=== PATIENT | female | born 1955 | race Caucasian/White ===

== ENCOUNTER 2017-08-31 19:50 | Emergency (ER) | payer BC ==
[2017-08-31 20:10] VITALS: BP 103/65
--- NOTE | 2017-08-31 20:15 | EDM.PDOC ---
ED HPI GENERAL MEDICAL PROBLEM - General Chief Complaint: General Stated Complaint: IN PAIN FROM A COLONASKPY PROCEDURE Time Seen by Provider: 08/31/17 20:14 Source of Information: Reports: Patient History Limitations: Reports: No Limitations - History of Present Illness INITIAL COMMENTS - FREE TEXT/NARRATIVE: Patient is 62-year-old female who presents to the ED complaining of generalized abdominal pain worse noted to the left upper quadrant. Patient recently had a EGD and colonoscopy performed earlier today at approximately 9:[address] [place] [address] Moody for left-sided upper quadrant abdominal pain. Patient was diagnosed with a hiatal hernia and also GERD. Patient was not released due to patient's blood pressure was low. Patient was discharged home at approximately 1 :00 in the afternoon. Since then the patient's been having intermittent abdominal pain that has progressively gotten worse this evening. Pain is constant generalized severe with palpation. Pain is worsened with laying flat and extends up the left side of her back into her shoulder. She has been eating and drinking with no nausea no vomiting. She's had intermittent loose stools with little flatulence. She believes some of her discomfort may be associated with residual air from the procedure that was not completely expelled. He has been urinating fine with no dysuria present. Current medications include: Celexa, levothyroxine, Citrucel, and Protonix Past history includes: chronic bronchitis, GERD, hiatal hernia, hypothyroidism, migraines, depression Surgical history includes: EGD/colonoscopy, cholecystectomy Patient smokes half pack per day, denies any alcohol use, denies any recreational drug use. Left Shoulder Pain Score (Numeric/FACES): 10 - Related Data Allergies Allergy/AdvReac Type Severity Reaction Status Date / Time Penicillins Allergy Rash Verified 03/01/16 17:45 tetracycline [Tetracycline] Allergy Nausea and Verified 03/01/16 17:45 Vomiting Home Meds: Home Meds Levothyroxine 100 mcg PO DAILY 02/05/14 [History] Acetaminophen [Tylenol] 650 mg PO ASDIRECTED PRN 08/31/17 [History] Brintellix 10 mg PO DAILY 08/31/17 [History] Methylcellulose [Citrucel] 500 mg PO DAILY 08/31/17 [History] Pantoprazole Sodium [Protonix] 40 mg PO DAILY 08/31/17 [History] Sucralfate [Carafate] 1 gram PO QID 08/31/17 [History] Past Medical History HEENT History: Reports: Impaired Vision Other HEENT History: wears eyeglasses Respiratory History: Reports: Bronchitis, Recurrent Gastrointestinal History: Reports: Cholelithiasis Genitourinary History: Reports: Other (See Below) Other Genitourinary History: blood in urine, unknown etiology. 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: Musculoskeletal History: Reports: Fracture Neurological History: Reports: Migraines Psychiatric History: Reports: Depression Endocrine/Metabolic History: Reports: Hypothyroidism - Infectious Disease History Infectious Disease History: Reports: Chicken Pox, Measles - Past Surgical History GI Surgical History: Reports: Cholecystectomy Social & Family History - Tobacco Use Smoking Status *Q: Current Every Day Smoker Years of Tobacco use: 30 Packs/Tins Daily: 0.5 Used Tobacco, but Quit: No Second Hand Smoke Exposure: No - Alcohol Use Days Per Week of Alcohol Use: 0 - Recreational Drug Use Recreational Drug Use: No Drug Use in Last 12 Months: No ED ROS GENERAL - Review of Systems Review Of Systems: ROS reveals no pertinent complaints other than HPI. ED EXAM, GENERAL - Physical Exam Exam: See Below Exam Limited By: No Limitations General Appearance: Alert, WD/WN, Moderate Distress Ears: Hearing Grossly Normal Nose: Normal Inspection Throat/Mouth: Normal Inspection, Normal Oropharynx, Normal Voice, No Airway Compromise Neck: Normal Inspection, Supple Respiratory/Chest: No Respiratory Distress, Lungs Clear, Normal Breath Sounds, No Accessory Muscle Use Cardiovascular: Normal Peripheral Pulses, Regular Rate, Rhythm Peripheral Pulses: 2+: Radial (L) GI/Abdominal: Distended, Guarding, Rebound, Tender (Throughout), Abnormal Bowel Sounds Back Exam: Normal Inspection. No: CVA Tenderness (L), CVA Tenderness (R) Extremities: Normal Inspection, Non-Tender, No Pedal Edema Neurological: Alert, Oriented, CN II-XII Intact, Normal Cognition Psychiatric: Normal Affect, Normal Mood Skin Exam: Warm, Dry, Intact, Normal Color Course - Vital Signs Last Recorded V/S: Last Vital Signs Temp 97.7 F 08/31/17 20:09 Pulse 87 08/31/17 20:09 Resp 20 08/31/17 20:09 BP 103/65 08/31/17 20:09 Pulse Ox 99 08/31/17 20:09 - Orders/Labs/Meds Orders: Active Orders 24 hr Category Date Time Status Peripheral IV Care [RC] . DIRECTED Care 08/31/17 20:38 Active PACKED CELLS [RED BLOOD CELLS LP] [BBK] Stat Lab 08/31/17 20:40 Results PATIENT RETYPE [BBK] Stat Lab 08/31/17 20:40 Results TYPE AND SCREEN [BBK] Stat Lab 08/31/17 20:40 Results Peripheral IV Insertion Adult [OM.PC] Stat Oth 08/31/17 20:38 Ordered Labs: Laboratory Tests 08/31/17 08/31/17 08/31/17 Range/Units 20:40 20:40 20:40 WBC 11.46 H (3.98-10.04) K/mm3 RBC 3.13 L (3.98-5.22) M/mm3 Hgb 9.4 L (11.2-15.7) gm/L Hct 27.9 L (34.1-44.9) % MCV 89.1 (79.4-94.8) fl MCH 30.0 (25.6-32.2) pg MCHC 33.7 (32.2-35.5) g/dl RDW Std Deviation 43.4 (36.4-46.3) fL Plt Count 307 (182-369) K/mm3 MPV 9.9 (9.4-12.3) fl Neut % (Auto) 81.1 H (34.0-71.1) % Lymph % (Auto) 12.8 L (19.3-51.7) % [place] % (Auto) 5.3 (4.7-12.5) % Eos % (Auto) 0.3 L (0.7-5.8) Baso % (Auto) 0.2 (0.1-1.2) % Neut # (Auto) 9.30 H (1.56-6.13) K/mm3 Lymph # (Auto) 1.47 (1.18-3.74) K/mm3 [place] # (Auto) 0.61 H (0.24-0.36) K/mm3 Eos # (Auto) 0.03 L (0.04-0.36) K/mm3 Baso # (Auto) 0.02 (0.01-0.08) K/mm3 Sodium 138 (136-145) mEq/L Potassium 3.5 (3.5-5.1) mEq/L Chloride 104 (98-107) mEq/L Carbon Dioxide 25 (21-32) mEq/L Anion Gap 12.5 (5-15) BUN 9 (7-18) mg/dL Creatinine 0.7 (0.55-1.02) mg/dL Est Cr Clr Drug Dosing 64.21 mL/min Estimated GFR (MDRD) > 60 (>60) mL/min BUN/Creatinine Ratio 12.9 L (14-18) Glucose 121 H (80-115) mg/dL Calcium 8.5 (8.5-10.1) mg/dL Total Bilirubin 0.4 (0.2-1.0) mg/dL AST 16 (15-37) U/L ALT 17 (14-59) U/L Alkaline Phosphatase 78 (46-116) U/L C-Reactive Protein < 0.2 (<1.0) mg/dL Total Protein 5.4 L (6.4-8.2) g/dl Albumin 3.0 L (3.4-5.0) g/dl Globulin 2.4 gm/dL Albumin/Globulin Ratio 1.3 (1-2) Blood Type AB NEGATIVE Gel Antibody Screen Negative Crossmatch See Detail Meds: Medications Discontinued Medications Generic Name Dose Route Start Last Admin Trade Name Chavoq PRN Reason Stop Dose Admin Diatrizoate Meglum/Diatrizoate Sod 90 ml 08/31/17 22:48 08/31/17 23:46 Gastrografin 37% PO 08/31/17 22:49 90 ml ONETIME ONE Administration Hydromorphone HCl 0.25 mg 08/31/17 20:39 08/31/17 20:54 Dilaudid IVPUSH 08/31/17 20:40 0.25 mg ONETIME ONE Administration Hydromorphone HCl 0.25 mg 08/31/17 22:15 08/31/17 22:21 Dilaudid IVPUSH 08/31/17 22:16 0.25 mg ONETIME ONE Administration Hydromorphone HCl 0.25 mg 08/31/17 23:08 08/31/17 23:14 Dilaudid IVPUSH 08/31/17 23:09 0.25 mg ONETIME ONE Administration Sodium Chloride 1,000 mls @ 250 mls/hr 08/31/17 20:45 09/01/17 00:24 Normal Saline IV 100 mls/hr ASDIRECTED TYLER Infusion Iopamidol 120 ml 08/31/17 22:48 08/31/17 23:47 Isovue-300 (61%) IVPUSH 08/31/17 22:49 120 ml ONETIME ONE Administration Ondansetron HCl 4 mg 08/31/17 20:39 08/31/17 20:54 Zofran IVPUSH 08/31/17 20:40 4 mg ONETIME ONE Administration Ondansetron HCl 4 mg 08/31/17 23:21 08/31/17 23:21 Zofran IVPUSH 08/31/17 23:22 4 mg ONETIME ONE Administration Ondansetron HCl Confirm 08/31/17 23:26 08/31/17 23:42 Zofran Administered 08/31/17 23:27 Not Given Dose 4 mg .ROUTE .STK-MED ONE Ondansetron HCl 4 mg 08/31/17 23:40 08/31/17 23:42 Zofran IVPUSH 08/31/17 23:41 Not Given ONETIME ONE Sodium Chloride 10 ml 08/31/17 20:38 08/31/17 23:46 Saline Flush FLUSH 10 ml ASDIRECTED PRN Administration Keep Vein Open - Re-Assessments/Exams Free Text/Narrative Re-Assessment/Exam: IV established with normal saline 250 mL per hour, Zofran 4 mg IVP, Dilaudid 0.25 mg IVP. Initial labs will include CBC, chem 14, CRP. Will obtain 2 view of the abdomen flat and upright to evaluate for air in stool pattern. 08/31/17 21:23 Labs reviewed: Chemistry panel was essentially normal. White blood cell count mildly elevated 11.46, hemoglobin was 9.4, neutrophil percent is 81.1, neutrophil number is 9.30. CRP less than 0.2. Patient has had dark stools positive for blood prompting colonoscopy. She reports HGB was high this Jul 2017. She has no active bleeding from her rectum. Hgb is low today 9.4. No biopsy's obtained or bleeding within the colon today. X-ray of the abdomen does not show any free air along the diaphragm. Multiple areas with increased air within the colon with no signs of obstruction at this point. Reviewed with Dr. Rand. 2134 Reassessment, shared results of labs and x-ray of the abdomen with the patient. She is still quite tender to touch left upper quadrant. Unable to sit up without experiencing significant amount of pain. Will go ahead and obtain a CT the abdomen and pelvis with oral and IV contrast. 08/31/17 22:15 patient is having worsening pain to her abdomen after drinking the contrast. Ordered Dilaudid 0.25 mg IVP. 08/31/17 23:21 patient came nauseated while in the radiology department. Ordered Zofran 4 mg IVP. 2[address] interpretation of the CT reveals blood around the liver and spleen. Unclear etiology. Vital signs 131/86 with a pulse of 92. 08/31/17 23:[address] 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. Shared results of the CT with him grade 2 splenic injury. Moderate hemoperitoneum with blood around the liver, spleen, and pelvis. 2355 We contacted [facility] and they notified us that they are unable to fly due to weather. Fixed wing is approximately 45-50 minutes away. Between transporting to the airport. Find a [place] and transporting to [place] via ambulance. I do believe transporting via ambulance from [place] to [place] would be just as fast. The roads per ambulance crew are safe to travel. [place] ambulance as requested we contact [place] ambulance for transport. This would add on additional 45 minutes to an hour. Nursing staff contacted dispatch for [facility]. They are rechecking the weather. Will send two units of blood with for transport if patient develops hypovolemic shock. Patient has received in total 700mls of NS while in the E.D. 1214 [facility] is able to fly. 09/01/17 00:34 [employer] rotor aircrew is present. Dispatch has just contacted our ER and states due to weather conditions rotor wing cannot fly. Fixed wing has been dispatch. Departure - Departure Time of Disposition: 01:16 Disposition: DC/Tfer to Acute Hospital 02 Condition: Fair Clinical Impression: Hemoperitoneum Spleen injury Qualifiers: Encounter type: initial encounter Qualified Code(s): S36.00XA - Unspecified injury of spleen, initial encounter - Discharge Information Referrals: Jenelle Ewing DO [Primary Care Provider] - Forms: ED Department Discharge - My Orders Last 24 Hours: My Active Orders 08/31/17 20:38 Peripheral IV Care [RC] . DIRECTED Peripheral IV Insertion Adult [OM.PC] Stat 08/31/17 20:40 PACKED CELLS [RED BLOOD CELLS LP] [BBK] Stat PATIENT RETYPE [BBK] Stat TYPE AND SCREEN [BBK] Stat - Assessment/Plan Last 24 Hours: My Active Orders 08/31/17 20:38 Peripheral IV Care [RC] . DIRECTED Peripheral IV Insertion Adult [OM.PC] Stat 08/31/17 20:40 PACKED CELLS [RED BLOOD CELLS LP] [BBK] Stat PATIENT RETYPE [BBK] Stat TYPE AND SCREEN [BBK] Stat
[2017-08-31] MEDS ORDERED: Ondansetron 4 MG/2 ML SDV IVPUSH ONE ×3 (20:39→23:40)
[2017-08-31] MEDS ORDERED: HYDROmorphone 0.5 MG/0.5 ML Syringe IVPUSH ONE ×3 (20:39→23:08)
[2017-08-31] MEDS ORDERED: Sodium Chloride 0.9% 1,000 ML IV SCH (20:45)
[2017-08-31] MEDS: Sodium Chloride 0.9% 10 ML Syringe FLUSH PRN ×2 (20:56→23:46)
[2017-08-31] MEDS ORDERED: Iopamidol 612 MG/ML 150 ML Bottle IVPUSH ONE (22:48)
[2017-08-31] MEDS ORDERED: Ondansetron 4 MG/2 ML SDV ONE (23:26)
[2017-08-31] MEDS: Diatrizoate Meglumine/Diatrizoate Sodium 37% 120 ML Bottle PO ONE ×2 (23:45→23:46)
--- NOTE | 2017-09-01 07:07 | CT ---
CT abdomen and pelvis Technique: Multiple axial sections were obtained from above the dome of the diaphragm inferiorly through the pubic symphysis. Intravenous and oral contrast was utilized. Comparison: Previous abdominal x-ray performed earlier on the same date (8:35 PM) and previous CT abdomen and pelvis exam of 09/21/13. Findings: Fluid is identified around the liver extending into the pelvis. Subcapsular hematoma involving the spleen is seen which compresses the length of the spleen. No splenic laceration is seen. No liver laceration is noted. Fluid with increased density seen within the pelvis felt compatible with blood products. Visualized lung bases show slight atelectasis. Moderate sized hiatal hernia is identified with gastroesophageal reflux contrast. Pancreas appears normal. Adrenal glands show no nodule. Cyst is identified within the right kidney measuring 1.8 cm. Kidneys are otherwise unremarkable. Aorta shows atherosclerotic change without aneurysmal dilatation. Pancreas appears within normal limits. No retroperitoneal adenopathy or mesenteric abnormalities are seen. Delayed images show contrast throughout the ureters as well as bladder. No bowel dilatation is seen. Appendix is not visualized. Impression: 1. Moderate amount of fluid within the abdomen and pelvis having the appearance of blood. 2. Subcapsular hematoma compressing the spleen. No intrasplenic laceration is seen. Findings compatible with grade 2 splenic injury. 3. Other incidental and nonacute findings as described above. Diagnostic code #5 Agree with preliminary report issued by [employer] ([employer] preliminary report dictated on 09/01/17, 12:56 AM Central Time)
--- NOTE | 2017-09-01 07:07 | CR ---
Abdomen: Supine and upright views of the abdomen were obtained. Comparison: Prior abdominal x-ray of 08/20/13. Bowel gas pattern appears unremarkable. Fullness is identified within the pelvis suspicious for fluid or pelvic mass. Surgical clips are seen within the upper right abdomen. Bony structures are unremarkable. Impression: 1. Fullness within the pelvis which will be described on subsequent CT study. 2. Two-view abdominal study is otherwise unremarkable. Diagnostic code #3
== END 2017-09-01 01:16 ==
LOC: JD.ED 19:50
DX: S36.00XA Unspecified injury of spleen, initial encounter (principal); E03.9 Hypothyroidism, unspecified; F17.210 Nicotine dependence, cigarettes, uncomplicated; Z90.49 Acquired absence of other specified parts of digestive tract; Z79.899 Other long term (current) drug therapy; Z88.0 Allergy status to penicillin; Z88.1 Allergy status to other antibiotic agents; X58.XXXA Exposure to other specified factors, initial encounter
CPT/HCPCS: 36415; 74020; 74177; 80053; 85025; 86140; 86850; 86900; 86901; 86922; 96361; 96374; 96375; 96376; 99285; J1170; J2405; J7040; J7050; Q9963; Q9967

== ENCOUNTER 2017-11-21 14:41 | Emergency (ER) | payer BC ==
--- NOTE | 2017-11-21 15:01 | EDM.PDOC ---
ED HPI GENERAL MEDICAL PROBLEM - General Chief Complaint: Cardiovascular Problem Stated Complaint: HIGH BLOOD PRESSURE Time Seen by Provider: 11/21/17 15:01 Source of Information: Reports: Patient History Limitations: Reports: No Limitations - History of Present Illness INITIAL COMMENTS - FREE TEXT/NARRATIVE: Patient is a 62-year-old female who presents the ED with concerns of elevated blood pressure when checked at [facility] today. Blood pressure checked 4 times and was instructed to go to the ED immediately. At no time has the patient complained of any chest pain, headache, shortness of breath, nausea/vomiting, n/ t to extremities, weakness, difficulty walking, or any other focal neurological deficits. She's never been diagnosed with hypertension. She does have a diagnosis of hypothyroidism, GERD, constipation, and anxiety/depression. She was being evaluated at [facility] for Brintillex refill. She will take Tylenol for discomfort. Of note she's been having some intermittent headaches described as being mild in nature for a while. Nothing noted as of recent. In addition with waking this morning she had some blurred vision that quickly resolved. She has no local PCP here since primary care provider left. She does not want to go back to [place] for primary care. Patient had a splenic injury after colonoscopy this past winter causing internal bleeding and had to be transferred to [place]. Patient smokes half pack per day. Drinks 3 bottles of Mountain Dew daily. Diet is poor. - Related Data Allergies Allergy/AdvReac Type Severity Reaction Status Date / Time Penicillins Allergy Rash Verified 11/21/17 14:49 tetracycline [Tetracycline] Allergy Nausea and Verified 11/21/17 14:49 Vomiting Home Meds: Home Meds Levothyroxine 100 mcg PO DAILY 02/05/14 [History] Acetaminophen [Tylenol] 650 mg PO ASDIRECTED PRN 08/31/17 [History] Brintellix 10 mg PO DAILY 08/31/17 [History] Methylcellulose [Citrucel] 500 mg PO DAILY 08/31/17 [History] Pantoprazole Sodium [Protonix] 40 mg PO DAILY 08/31/17 [History] Sucralfate [Carafate] 1 gram PO QID 08/31/17 [History] Past Medical History HEENT History: Reports: Impaired Vision Other HEENT History: wears eyeglasses Respiratory History: Reports: Bronchitis, Recurrent Gastrointestinal History: Reports: Cholelithiasis Genitourinary History: Reports: Other (See Below) Other Genitourinary History: blood in urine, unknown etiology. 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 History: Reports: Fracture Neurological History: Reports: Migraines Psychiatric History: Reports: Depression Endocrine/Metabolic History: Reports: Hypothyroidism - Infectious Disease History Infectious Disease History: Reports: Chicken Pox, Measles - Past Surgical History GI Surgical History: Reports: Cholecystectomy Social & Family History - Tobacco Use Smoking Status *Q: Current Every Day Smoker Years of Tobacco use: 45 Packs/Tins Daily: 0.5 Used Tobacco, but Quit: No Second Hand Smoke Exposure: No - Caffeine Use Caffeine Use: Reports: Coffee, Soda, Tea - Alcohol Use Days Per Week of Alcohol Use: 0 - Recreational Drug Use Recreational Drug Use: No Drug Use in Last 12 Months: No ED ROS GENERAL - Review of Systems Review Of Systems: ROS reveals no pertinent complaints other than HPI. ED EXAM, GENERAL - Physical Exam Exam: See Below Exam Limited By: No Limitations General Appearance: Alert, WD/WN, No Apparent Distress Eye Exam: Bilateral Eye: EOMI, PERRL Ears: Hearing Grossly Normal Nose: Normal Inspection Throat/Mouth: Normal Voice, No Airway Compromise Head: Atraumatic, Normocephalic Neck: Normal Inspection, Supple, Non-Tender, Full Range of Motion Respiratory/Chest: No Respiratory Distress, Lungs Clear, Normal Breath Sounds, No Accessory Muscle Use Cardiovascular: Normal Peripheral Pulses, Regular Rate, Rhythm, No Murmur Peripheral Pulses: 4+: Radial (L), Radial (R) GI/Abdominal: Normal Bowel Sounds, Soft, Non-Tender, No Organomegaly, No Distention Extremities: Normal Inspection Neurological: Alert, Oriented, CN II-XII Intact, Normal Cognition, No Motor/ Sensory Deficits Psychiatric: Normal Affect, Normal Mood Skin Exam: Warm, Dry, Normal Color Course - Vital Signs Last Recorded V/S: Last Vital Signs Temp 97.9 F 11/21/17 14:50 Pulse 89 11/21/17 15:04 Resp 17 11/21/17 14:50 BP 143/92 H 11/21/17 15:04 Pulse Ox 98 11/21/17 14:50 - Orders/Labs/Meds Orders: Active Orders 24 hr Category Date Time Status EKG Documentation Completion [RC] STAT Care 11/21/17 15:28 Active - Re-Assessments/Exams Free Text/Narrative Re-Assessment/Exam: Patient's blood pressure on examination was 143/92. At conclusion of examination patient's blood pressure is 139/93. She has no complaints at this time. She has no diagnosis of hypertension in the past. I offered to completely work her up for hypertension to which she declined. She will follow up with a new provider at [facility] in [place] to establish care. This is being arranged. I will get a EKG in the mean time. 11/21/17 16:23 EKG SR at a rate of [address] changes. Discharge instructions as documented. Departure - Departure Time of Disposition: 16:26 Disposition: Home, Self-Care 01 Condition: Good Clinical Impression: Hypertension Qualifiers: Hypertension type: unspecified Qualified Code(s): I10 - Essential (primary) hypertension Instructions: Hypertension, [id number], Preventing Hypertension Referrals: PCP,None [Primary Care Provider] - Forms: ED Department Discharge Additional Instructions: Appt has been scheduled with Dr. Hu for this coming TR at 1345. Suggest buying a BP machine and checking BP twice daily, same time, same method, keeping a log. Followup with Dr. Hu with BP machine and log. Quit smoking will drop your BP. Drink plenty of water. Refrain from excessive caffeine use. Exercise daily.Eat a balanced diet. Return to the E.D. if you develop any new or worsening symptoms. - My Orders Last 24 Hours: My Active Orders 11/21/17 15:28 EKG Documentation Completion [RC] STAT - Assessment/Plan Last 24 Hours: My Active Orders 11/21/17 15:28 EKG Documentation Completion [RC] STAT
[2017-11-21 15:04] VITALS: BP 143/92
== END 2017-11-21 16:35 | disposition home or self-care (01) ==
LOC: JD.ED 14:41
DX: I10 Essential (primary) hypertension (principal); F32.9 Major depressive disorder, single episode, unspecified; E03.9 Hypothyroidism, unspecified; F17.210 Nicotine dependence, cigarettes, uncomplicated; Z79.899 Other long term (current) drug therapy; Z88.0 Allergy status to penicillin; Z88.1 Allergy status to other antibiotic agents
CPT/HCPCS: 93005; 99283-25